=== PATIENT | female | born 1995 | race American Indian/Alaskan Native ===

== ENCOUNTER 2016-12-15 16:58 | Emergency (ER) | payer SELFPAY ==
[2016-12-15 18:04] LABS: Bilirubin,Urine NEG (Negative); Blood,Urine LG (Negative); Ketones,Urine NEG (Negative); Leukocyte Esterase,Urine NEG (Negative); Nitrite,Urine NEG (Negative)
[2016-12-15 18:23] LABS: Mucus,Urine 3+ /HPF
[2016-12-15 18:25] LABS: RBC,Urine > 182.0 /HPF (0.0-6.0)
[2016-12-15] MEDS ORDERED: MOTRIN PO ONE (18:34)
--- NOTE | 2016-12-15 19:39 | Ultrasound Report ---
FINAL REPORT PROCEDURE: US PELVIC COMPLETE TECHNIQUE: Real-time transabdominal sonography in multiple planes of pelvis was performed with image documentation. This examination was performed without Doppler. Vascular abnormalities, including ovarian torsion, will not be detectable without Doppler evaluation. CPT 31646 HISTORY: heavy bleeding COMPARISON: No prior studies are available for comparison. FINDINGS: UTERUS Size: 7 x 5 x 5 cm. Endometrial thickness: 8 mm. Orientation: anteverted. Cervix: Normal. Fibroids/masses: None. RIGHT Ovary: 2 x 1 x 1 cm. Appearance: Normal. LEFT Ovary: 3 x 2 x 2 cm. Appearance: Normal. Pelvic fluid: None. Other: None. IMPRESSION: Unremarkable study
--- NOTE | 2016-12-15 19:39 | Ultrasound Report ---
FINAL REPORT PROCEDURE: US TRANSVAGINAL TECHNIQUE: Real-time transvaginal sonography in multiple planes of the pelvis was performed with image documentation. This examination was performed without Doppler. Vascular abnormalities, including ovarian torsion, will not be detectable without Doppler evaluation. CPT 23724 HISTORY: heavy bleeding COMPARISON: No prior studies are available for comparison. FINDINGS: UTERUS Size: 7 x 5 x 5 cm. Endometrial thickness: 8 mm. Orientation: anteverted. Cervix: Normal. Fibroids/masses: None. RIGHT Ovary: 2 x 1 x 1.4 cm. Appearance: Normal. LEFT Ovary: 3 x 2 x 2 cm. Appearance: Normal. Pelvic fluid: None. Other: None. IMPRESSION: Unremarkable study.
[2016-12-15 20:17] VITALS: BP 120/70
[2016-12-15 20:46] LABS: Hematocrit 39.2 % (30.3-42.9); Hemoglobin 12.7 gm/dl (10.1-14.3); Mean Corpuscular HGB Conc 33 % (30-34); Mean Corpuscular Hemoglobin 30 pg (28-32); Mean Corpuscular Volume 92 fl (79-97); Platelet Count 276 K/mm3 (140-440); Red Blood Count 4.26 M/mm3 (3.65-5.03); Red Cell Distribution Width 13.5 % (13.2-15.2); White Blood Count 4.3 K/mm3 (4.5-11.0)
--- NOTE | 2016-12-15 21:08 | Emergency Department Report ---
Entered by SEA EL, acting as scribe for ERIC JEFF PA. ED Female HPI - General Chief complaint: Vaginal Bleeding Stated complaint: HEAVY CYCLE Time Seen by Provider: 12/15/16 17:49 Source: patient Mode of arrival: Ambulatory Limitations: No Limitations - History of Present Illness Initial comments: 21 y/o female with no significant PMHx presents to the ED c/o vaginal bleeding that began 1 day ago. Reports associated low abdominal cramps, low back cramps, urinary urgency and frequency, but she denies dysuria, nausea, and vomiting. Patient states she usually comes on her period on the , which her LNMP was on 11/25/2016. Reports her period began again after she landed in [place] from a flight from [place] 1 day ago. Notes that she is bleeding heavier than normal. Reports that she is sexually active without protection, and she states she doesn't know if she is . Denies taking any new or recent medications at home. NKDA. ADAM Complaint: vaginal bleeding Onset/Timin -: days(s) Radiation: non-radiating Severity: severe Quality: cramping Consistency: constant Improves with: none Worsens with: none Are you Now?: No Last Menstrual Period: 12/14/16 EDC: 09/20/17 Associated Symptoms: denies other symptoms, vaginal bleeding, abdominal pain ( low abdominal cramping), other (low back cramping). denies: vaginal discharge, nausea/vomiting, fever/chills, headaches, loss of appetite, dysuria, hematuria, rash, seizure, shortness of breath, syncope, weakness - Related Data Sexually active: Yes : 0 Para: 0 A: 0 Previous Rx's Medication Instructions Recorded Last Taken Type Ibuprofen [Motrin] 800 mg PO Q8HR PRN #40 tablet 12/15/16 Unknown Rx Allergies Allergy/AdvReac Type Severity Reaction Status Date / Time sulfamethoxazole AdvReac Swelling Verified 12/15/16 17:13 [From Bactrim] trimethoprim [From Bactrim] AdvReac Swelling Verified 12/15/16 17:13 ED Review of Systems Comment: All other systems reviewed and negative Constitutional: denies: chills, fever Eyes: denies: eye pain, eye discharge, vision change ENT: denies: ear pain, throat pain Respiratory: denies: cough, shortness of breath, wheezing Cardiovascular: denies: chest pain, palpitations Endocrine: no symptoms reported Gastrointestinal: abdominal pain (low abdominal cramps). denies: nausea, vomiting, diarrhea Genitourinary: urgency, frequency, other (vaginal bleeding). denies: dysuria, discharge Musculoskeletal: back pain (low back cramps). denies: joint swelling, arthralgia Skin: denies: rash, lesions Neurological: denies: headache, weakness, numbness, paresthesias Psychiatric: denies: anxiety, depression Hematological/Lymphatic: denies: easy bleeding, easy bruising ED Past Medical Hx - Past Medical History Previous Medical History?: No - Surgical History Past Surgical History?: No - Social History Smoking Status: Never Smoker Substance Use Type: None - Medications Home Medications: Home Medications Medication Instructions Recorded Confirmed Last Taken Type Ibuprofen [Motrin] 800 mg PO Q8HR PRN #40 tablet 12/15/16 Unknown Rx ED Physical Exam - General Limitations: No Limitations General appearance: alert, in no apparent distress - Head Head exam: Present: atraumatic, normocephalic - Eye Eye exam: Present: normal appearance, PERRL, EOMI Pupils: Present: normal accommodation - ENT ENT exam: Present: normal exam, mucous membranes moist, normal external ear exam - Neck Neck exam: Present: normal inspection, full ROM. Absent: tenderness, meningismus, lymphadenopathy - Respiratory Respiratory exam: Present: normal lung sounds bilaterally. Absent: respiratory distress, wheezes, rales, rhonchi, stridor, accessory muscle use, decreased breath sounds - Cardiovascular Cardiovascular Exam: Present: regular rate, normal rhythm, normal heart sounds. Absent: systolic murmur, diastolic murmur, rubs, gallop - GI/Abdominal GI/Abdominal exam: Present: soft, normal bowel sounds. Absent: distended, tenderness, guarding, rebound, rigid - Extremities Exam Extremities exam: Present: normal inspection, full ROM - Back Exam Back exam: Present: normal inspection, full ROM, CVA tenderness (R), CVA tenderness (L) - Neurological Exam Neurological exam: Present: alert, oriented X3, normal gait - Psychiatric Psychiatric exam: Present: normal affect, normal mood - Skin Skin exam: Present: warm, dry, intact. Absent: rash ED Course Vital Signs 12/15/16 12/15/16 17:10 20:16 Temperature 98.5 F Pulse Rate 77 67 Respiratory 16 18 Rate Blood Pressure 118/55 Blood Pressure 120/70 [Left] O2 Sat by Pulse 100 100 Oximetry ED Medical Decision Making - Lab Data Result diagrams: 12/15/16 19:37 - Radiology Data Radiology results: report reviewed, image reviewed FINAL REPORT PROCEDURE: US TRANSVAGINAL TECHNIQUE: Real-time transvaginal sonography in multiple planes of the pelvis was performed with image documentation. This examination was performed without Doppler. Vascular abnormalities, including ovarian torsion, will not be detectable without Doppler evaluation. CPT 87335 HISTORY: heavy bleeding COMPARISON: No prior studies are available for comparison. FINDINGS: UTERUS Size: 7 x 5 x 5 cm. Endometrial thickness: 8 mm. Orientation: anteverted. Cervix: Normal. Fibroids/masses: None. RIGHT Ovary: 2 x 1 x 1.4 cm. Appearance: Normal. LEFT Ovary: 3 x 2 x 2 cm. Appearance: Normal. Pelvic fluid: None. Other: None. IMPRESSION: Unremarkable study. Transcribed By: [facility] Dictated By: JUAN SIM Electronically Authenticated By: JUAN SIM Signed Date/Time: 12/15/16 193 - Medical Decision Making 21 year-old female presents with menstrual cycle/AUB. ED: UA, test, and CBC, ordered for patient. Patient received an US of abdomen. H&H within normal limits, test negative, urinalysis within negative, ultrasound shows no acute findings. Discussed this results with the patient. Discussed this could be a case of abnormal uterine bleeding or menstrual period to follow-up with the SENIOR ACCOUNTING CLERK Discussed the patient to follow instructions as given and follow-up with primary care physician and party director as referred. Discuss her symptoms return or worsen to return to the ED Vital signs are normal ,patient is in no acute distress, she is alert and oriented 3 ED Disposition Clinical Impression: Abnormal uterine bleeding (AUB), Metrorrhagia Disposition: DC- TO HOME OR SELFCARE Is pt being admited?: No Does the pt Need Aspirin: No Condition: Stable Instructions: Dysfunctional Uterine Bleeding (ED), Dysmenorrhea (ED), Menorrhagia (ED) Additional Instructions: Follow-up with her SENIOR ACCOUNTING CLERK doctor has referred Take your Motrin as stated for pain The ultrasound findings were normal and no abnormal findings Prescriptions: Ibuprofen [Motrin] 800 mg PO Q8HR PRN #40 tablet PRN Reason: Pain Referrals: PRIMARY CARE,MD [Primary Care Provider] - 3-5 Days MARILIN KENNEDY MD [Referring] - 3-5 Days DEEPA KENNEDY MD [Referring] - 3-5 Days DANIELA FREEDMAN MD [Referring] - 3-5 Days Forms: Accompanied Note, Work/School Release Form(ED) Time of Disposition: 20:06 This documentation as recorded by the SIENNA vega JASMINE,accurately reflects the service I personally performed and the decisions made by ,ERIC JEFF PA.
== END 2016-12-15 20:17 | disposition home or self-care (01) ==
LOC: ED 16:58
DX: N92.1 Excessive and frequent menstruation with irregular cycle (principal); Z88.2 Allergy status to sulfonamides; Z88.8 Allergy status to other drugs, medicaments and biological substances
CPT/HCPCS: 36415; 76830; 76856; 81001; 81025; 85027

== ENCOUNTER 2017-04-23 12:07 | Emergency (ER) | payer SELFPAY ==
[2017-04-23 12:57] LABS: Basophils % (Auto) 0.3 % (0.0-1.8); Eosinophils % (Auto) 1.7 % (0.0-4.3); Hematocrit 34.4 % (30.3-42.9); Mean Corpuscular HGB Conc 32 % (30-34); Mean Corpuscular Hemoglobin 30 pg (28-32); Mean Corpuscular Volume 93 fl (79-97); Platelet Count 268 K/mm3 (140-440); Red Blood Count 3.71 M/mm3 (3.65-5.03)
[2017-04-23 13:00] LABS: Bilirubin,Urine NEG (Negative); Blood,Urine NEG (Negative); Ketones,Urine NEG (Negative); Leukocyte Esterase,Urine LG (Negative); Mucus,Urine FEW /HPF; Nitrite,Urine NEG (Negative); Protein,Urine <15 mg/dL mg/dL (Negative); Urobilinogen,Urine < 2.0 mg/dL (<2.0)
[2017-04-23 13:08] LABS: Alanine Aminotransferase 31 units/L (7-56); Albumin/Globulin Ratio 1.5 %; Alkaline Phosphatase 18 units/L (35-129); Anion Gap 16 mmol/L; BUN/Creatinine Ratio 9; Blood Urea Nitrogen 7 mg/dL (7-17); Calcium 8.5 mg/dL (8.4-10.2); Carbon Dioxide 24 mmol/L (22-30); Chloride 102.8 mmol/L (98-107); Glucose 99 mg/dL (65-100); Lipase 56 units/L (13-60); Potassium 3.8 mmol/L (3.6-5.0); Sodium 139 mmol/L (137-145); Total Protein 6.7 g/dL (6.3-8.2)
[2017-04-23 20:23] VITALS: BP 116/67
--- NOTE | 2017-04-23 22:39 | Emergency Department Report ---
ED Abdominal Pain HPI - General Chief Complaint: Abdominal Pain Stated Complaint: ABDOMINAL PAIN Time Seen by Provider: 04/23/17 22:37 Source: patient Mode of arrival: Ambulatory Limitations: No Limitations - History of Present Illness MD Complaint: abdominal pain -: Gradual (over 1 week) Location: suprapubic Radiation: none Migration to: no migration Severity scale (0 -10): 3 Quality: cramping Consistency: constant Improves With: rest Worsens With: movement Context: other (possible STD exposure) Associated Symptoms: other (vaginal discharge - yellow in color) - Related Data LMP Date: 04/12/17 Previous Rx's Medication Instructions Recorded Last Taken Type Ibuprofen [Motrin] 800 mg PO Q8HR PRN #40 tablet 12/15/16 Unknown Rx Azithromycin [Zithromax] 1 gm PO ONCE 1 Days #1 packet 04/23/17 Unknown Rx Ciprofloxacin HCl [Cipro] 500 mg PO BID 10 Days #20 tablet 04/23/17 Unknown Rx Allergies Allergy/AdvReac Type Severity Reaction Status Date / Time sulfamethoxazole AdvReac Swelling Verified 12/15/16 17:13 [From Bactrim] trimethoprim [From Bactrim] AdvReac Swelling Verified 12/15/16 17:13 ED Review of Systems ROS: Stated complaint: ABDOMINAL PAIN Other details as noted in HPI Comment: All other systems reviewed and negative Constitutional: no symptoms reported Eyes: as per HPI ENT: as per HPI Respiratory: no symptoms reported Cardiovascular: as per HPI Endocrine: no symptoms reported Gastrointestinal: as per HPI, abdominal pain Genitourinary: as per HPI Musculoskeletal: as per HPI Skin: as per HPI Neurological: as per HPI Psychiatric: as per HPI Hematological/Lymphatic: as per HPI ED Past Medical Hx - Past Medical History Previous Medical History?: No - Surgical History Past Surgical History?: No - Family History Family history: no significant - Social History Smoking Status: Never Smoker Substance Use Type: Alcohol, Non Opiate Pain - Medications Home Medications: Home Medications Medication Instructions Recorded Confirmed Last Taken Type Ibuprofen [Motrin] 800 mg PO Q8HR PRN #40 tablet 12/15/16 Unknown Rx Azithromycin [Zithromax] 1 gm PO ONCE 1 Days #1 packet 04/23/17 Unknown Rx Ciprofloxacin HCl [Cipro] 500 mg PO BID 10 Days #20 tablet 04/23/17 Unknown Rx ED Physical Exam - General Limitations: No Limitations General appearance: alert, in no apparent distress - Head Head exam: Present: atraumatic, normocephalic - Eye Eye exam: Present: normal appearance - ENT ENT exam: Present: mucous membranes moist - Neck Neck exam: Present: normal inspection - Respiratory Respiratory exam: Present: normal lung sounds bilaterally. Absent: respiratory distress - Cardiovascular Cardiovascular Exam: Present: regular rate, normal rhythm. Absent: systolic murmur, diastolic murmur, rubs, gallop - GI/Abdominal GI/Abdominal exam: Present: soft, tenderness (bilateral lower quadrant), normal bowel sounds - Extremities Exam Extremities exam: Present: normal inspection - Back Exam Back exam: Present: normal inspection - Neurological Exam Neurological exam: Present: alert, oriented X3 - Psychiatric Psychiatric exam: Present: normal affect, normal mood - Skin Skin exam: Present: warm, dry, intact, normal color. Absent: rash ED Course Vital Signs 04/23/17 04/23/17 04/23/17 12:10 18:16 18:40 Temperature 98.3 F 98.0 F 98 F Pulse Rate 87 70 70 Respiratory 20 16 16 Rate Blood Pressure 125/72 129/83 Blood Pressure 129/83 [Right] O2 Sat by Pulse 100 100 99 Oximetry 04/23/17 20:21 Temperature 98.3 F Pulse Rate 87 Respiratory 18 Rate Blood Pressure Blood Pressure 116/67 [Right] O2 Sat by Pulse 100 Oximetry ED Medical Decision Making - Lab Data Result diagrams: 04/23/17 12:40 04/23/17 12:38 UA positive. - Radiology Data Radiology results: report reviewed No acute findings on CT scan of abdomen. Possible gallbladder disease will have patient follow-up as an outpatient - Medical Decision Making All results explained the patient. Patient stable for discharge - Differential Diagnosis abd pain. gastroenteritis. pid. std. uti Critical care attestation.: If time is entered above; I have spent that time in minutes in the direct care of this critically ill patient, excluding procedure time. ED Disposition Clinical Impression: Possible exposure to STD, Abdominal pain, Vaginal discharge, Urinary tract infection Disposition: - TO HOME OR SELFCARE Is pt being admited?: No Does the pt Need Aspirin: No Condition: Stable Instructions: Abdominal Pain (ED), Urinary Tract Infection in Women (ED) Additional Instructions: Patient to follow up with primary care and INFORMATION SYSTEMS PROFESSOR within 3-5 days. Patient to have further evaluation for STD exposure. Patient increase water. No sexual activity until cleared by INFORMATION SYSTEMS PROFESSOR. Patient to take ibuprofen Tylenol when necessary for pain. To return to the ER if condition worsens. Prescriptions: Azithromycin [Zithromax] 1 gm PO ONCE 1 Days #1 packet Ciprofloxacin HCl [Cipro] 500 mg PO BID 10 Days #20 tablet Referrals: PRIMARY CARE, [Primary Care Provider] - 3-5 Days Time of Disposition: 23:45
--- NOTE | 2017-04-23 23:31 | Cat Scan Report ---
FINAL REPORT PROCEDURE: CT ABDOMEN PELVIS WO CON TECHNIQUE: Computerized axial tomography of the abdomen and pelvis was performed without intravenous contrast. This study is performed without intravascular contrast material and its sensitivity for abdominal and pelvic pathology, including neoplasms, inflammation, abscess, free fluid, thrombosis, arterial dissection and infarction, is reduced compared with a contrast enhanced study. HISTORY: abd pain COMPARISON: No prior studies are available for comparison. FINDINGS: Visualized lower thorax: No significant abnormality. Liver: Normal size and attenuation. Spleen: Normal size and attenuation. Gallbladder and biliary system: Gallbladder is contracted most likely secondary to postprandial status.. Pancreas: Normal. Adrenals: Normal. Kidneys: Normal. GI tract: Large amount of residual stool is noted. Small bowel loops are within normal limits. Appendix is normal.. Lymph nodes and mesentery: Normal. Vasculature: Normal. Bladder: Normal. Reproductive organs: Normal. Peritoneum: No free fluid. Musculoskeletal structures: No significant abnormality. Other: None. IMPRESSION: Gallbladder is contracted most likely postprandial. If chronic cholecystitis is suspected ultrasound evaluation with 6 hours fasting is recommended. Large amount of residual stool..
[2017-04-23] MEDS ORDERED: XYLOCAINE 1% MPF 5 mL INFILTRATI ONE (23:42)
[2017-04-23] MEDS ORDERED: ROCEPHIN IM ONE (23:42)
== END 2017-04-24 00:15 | disposition home or self-care (01) ==
LOC: ED 12:07
DX: N39.0 Urinary tract infection, site not specified (principal); N89.8 Other specified noninflammatory disorders of vagina; Z88.8 Allergy status to other drugs, medicaments and biological substances
CPT/HCPCS: 36415; 74176; 80053; 81001; 81025; 83690; 85025; 96372; 99284; J0696

== ENCOUNTER 2018-10-09 20:14 | Emergency (ER) | payer MEDICAID ==
--- NOTE | 2018-10-09 21:03 | Emergency Department Report ---
Blank Doc - Documentation Documentation: pt states she has had a sore throat since last week hurts to swallow states she was running a fever no PMHx allergy: bactrim- facial swelling non smoker occ drinker no drug use
--- NOTE | 2018-10-10 00:22 | Emergency Department Report ---
- General Chief Complaint: Sore Throat Stated Complaint: SWOLLEN THROAT Time Seen by Provider: 10/09/18 21:01 Source: patient Mode of arrival: Ambulatory Limitations: No Limitations - History of Present Illness Initial Comments: 23-year-old Italian female department complaining of 1-1/2 week history of non- progressing sore throat. Associated with yellow mucus production coughing and some nasal Congestion off and on. No hemoptysis, no hematemesis or hematochezia. Reports no chest pain or palpitations. No diarrhea. No rashes noted. -: Gradual Severity: mild Quality: dull Consistency: constant Improves With: nothing Worsens With: nothing Associated Symptoms: rhinorrhea, nasal congestion, sore throat, cough. denies: shortness of breath, abdominal pain, vomiting, confusion, right sweats, weight loss, hoarseness - Related Data Previous Rx's Medication Instructions Recorded Last Taken Type Ibuprofen [Motrin] 800 mg PO Q8HR PRN #40 tablet 12/15/16 Unknown Rx Azithromycin [Zithromax] 1 gm PO ONCE 1 Days #1 packet 04/23/17 Unknown Rx Ciprofloxacin HCl [Cipro] 500 mg PO BID 10 Days #20 tablet 04/23/17 Unknown Rx Chlorhexidine Gluconate [Hibiclens] 10 ml TP BID #240 liquid 10/10/18 Unknown Rx Lidocaine Viscous 2% 5 ml MM Q3H PRN #120 udc 10/10/18 Unknown Rx Allergies Allergy/AdvReac Type Severity Reaction Status Date / Time sulfamethoxazole AdvReac Swelling Verified 12/15/16 17:13 [From Bactrim] trimethoprim [From Bactrim] AdvReac Swelling Verified 12/15/16 17:13 ED Review of Systems ROS: Stated complaint: SWOLLEN THROAT Other details as noted in HPI Constitutional: denies: chills, fever Eyes: denies: eye pain, eye discharge, vision change ENT: throat pain. denies: ear pain Respiratory: denies: cough, shortness of breath, wheezing Cardiovascular: denies: chest pain, palpitations Endocrine: no symptoms reported Gastrointestinal: denies: abdominal pain, nausea, diarrhea Genitourinary: denies: urgency, dysuria, discharge Musculoskeletal: denies: back pain, joint swelling, arthralgia Skin: denies: rash, lesions Neurological: denies: headache, weakness, paresthesias Psychiatric: denies: anxiety, depression Hematological/Lymphatic: denies: easy bleeding, easy bruising ED Past Medical Hx - Past Medical History Previous Medical History?: Yes Hx Asthma: Yes - Surgical History Past Surgical History?: Yes Additional Surgical History: l arm cyst removal - Social History Smoking Status: Never Smoker Substance Use Type: None - Medications Home Medications: Home Medications Medication Instructions Recorded Confirmed Last Taken Type Ibuprofen [Motrin] 800 mg PO Q8HR PRN #40 tablet 12/15/16 Unknown Rx Azithromycin [Zithromax] 1 gm PO ONCE 1 Days #1 packet 04/23/17 Unknown Rx Ciprofloxacin HCl [Cipro] 500 mg PO BID 10 Days #20 tablet 04/23/17 Unknown Rx Chlorhexidine Gluconate [Hibiclens] 10 ml TP BID #240 liquid 10/10/18 Unknown Rx Lidocaine Viscous 2% 5 ml MM Q3H PRN #120 udc 10/10/18 Unknown Rx ED Physical Exam - General Limitations: No Limitations General appearance: alert, in no apparent distress - Head Head exam: Present: atraumatic, normocephalic - Eye Eye exam: Present: normal appearance, PERRL, EOMI Pupils: Present: normal accommodation - ENT ENT exam: Present: normal exam, mucous membranes moist, other (mild erythema to the pharynx. No exudate noted. Airway is patent. Tongue and uvula are midline.) - Neck Neck exam: Present: normal inspection - Respiratory Respiratory exam: Present: normal lung sounds bilaterally. Absent: respiratory distress - Cardiovascular Cardiovascular Exam: Present: regular rate, normal rhythm. Absent: systolic murmur, diastolic murmur, rubs, gallop - GI/Abdominal GI/Abdominal exam: Present: soft, normal bowel sounds - Extremities Exam Extremities exam: Present: normal inspection - Back Exam Back exam: Present: normal inspection - Neurological Exam Neurological exam: Present: alert, oriented X3 - Psychiatric Psychiatric exam: Present: normal affect, normal mood - Skin Skin exam: Present: warm, dry, intact, normal color. Absent: rash ED Course Vital Signs 10/09/18 10/09/18 20:24 21:03 Temperature 98.1 F 98.1 F Pulse Rate 107 H 107 H Respiratory 18 18 Rate Blood Pressure 123/73 123/73 O2 Sat by Pulse 96 96 Oximetry ED Medical Decision Making - Differential Diagnosis strep throat, mono, allergies, a note, Critical care attestation.: If time is entered above; I have spent that time in minutes in the direct care of this critically ill patient, excluding procedure time. ED Disposition Clinical Impression: Pharyngitis Disposition: - TO HOME OR SELFCARE Is pt being admited?: No Does the pt Need Aspirin: No Condition: Stable Instructions: Pharyngitis (ED) Prescriptions: Chlorhexidine Gluconate [Hibiclens] 10 ml TP BID #240 liquid Lidocaine Viscous 2% 5 ml MM Q3H PRN #120 udc PRN Reason: Pain, Moderate (4-6) Referrals: SHAILESH JACOB MD [Primary Care Provider] - 3-5 Days
[2018-10-10 01:02] VITALS: BP 116/80
== END 2018-10-10 00:40 | disposition home or self-care (01) ==
LOC: ED 20:14
DX: J02.9 Acute pharyngitis, unspecified (principal); J45.909 Unspecified asthma, uncomplicated; Z79.899 Other long term (current) drug therapy; Z88.2 Allergy status to sulfonamides
CPT/HCPCS: 87116; 87430; 99283